=== PATIENT | male | born 1985 | race Caucasian/White ===

== ENCOUNTER 2021-05-30 11:56 | Inpatient (IN) | payer OTHER ==
[~2021-05-30] VITALS: Ht 190.5 cm; Wt 72.4 kg
[2021-05-30] MEDS ORDERED: AMOX875T2 PO (20:25)
[2021-05-31 17:10] VITALS: BP 126/81
== END 2021-05-31 17:45 | disposition home or self-care (01) | DRG 517 ==
LOC: M ED 11:56 → M ED INP 20:27 → ENRESERV 22:05 → M MSPAV 23:15
PROVIDERS: ADMIT Internal Medicine; ATTEND Internal Medicine Nephrology
PROC: 0PBT0ZZ Excision of Right Finger Phalanx, Open Approach (ICD-10-PCS; principal; 2021-05-31)
PROC: 0HBQXZZ Excision of Finger Nail, External Approach (ICD-10-PCS; 2021-05-31)
PROC: BP1 Imaging, Non-Axial Upper Bones, Fluoroscopy (ICD-10-PCS; 2021-05-31)
DX: S62.634B Displaced fracture of distal phalanx of right ring finger, initial encounter for open fracture (principal); Z87.820 Personal history of traumatic brain injury; Z79.2 Long term (current) use of antibiotics; W23.0XXA Caught, crushed, jammed, or pinched between moving objects, initial encounter; Y92.812 Truck as the place of occurrence of the external cause; Z20.822 Contact with and (suspected) exposure to COVID-19

== ENCOUNTER → 2021-11-21 | Outpatient (REF) | payer OTHER ==
[~2021-11-21] MED LIST: AMOX875T2 PO
== END ==
LOC: M LAB REF 13:29
PROVIDERS: ATTEND Urology
DX: Z30.2 Encounter for sterilization (principal); Z30.8 Encounter for other contraceptive management